=== PATIENT | female | born 1975 | race Caucasian/White ===

== ENCOUNTER 2019-11-16 14:56 | Emergency (ER) | payer OTHER, MEDICAID, SELFPAY ==
[~2019-11-16] VITALS: Ht 157.5 cm; Wt 129.3 kg
[2019-11-16 14:58] VITALS: BP_SYST 156
[2019-11-16] MEDS ORDERED: NACL 0.9% 2,000 ML IV ONE (15:15)
[2019-11-16] MEDS: ONDANSETRON HCL 4 MG/2 ML VIAL IVP ONE (15:26)
[2019-11-16] MEDS: MORPHINE 4 MG/ML INJ. SYRINGE IVP ONE (15:30)
[2019-11-16] MEDS: INSULIN REGULAR, HUMAN 10 UNITS/0.1 ML INJ IVP ONE (15:31)
[2019-11-16] MEDS: NACL 0.9% 1,000 ML IV ONE (15:34)
[2019-11-16 16:33] LABS: ANION GAP 13 (5-15); CALCIUM 8.1 mg/dL (8.4-11.0); CHLORIDE 95 mmol/L (98-107); GLUCOSE 352 mg/dL (70-99); POTASSIUM 3.6 mmol/L (3.5-5.1); SODIUM SERUM 127 mmol/L (136-145); UREA NITROGEN, BLOOD 13 mg/dL (8-21)
[2019-11-16 16:34] LABS: GFR AFRICAN AMERICAN 101 mL/min (>90); INR 1.3 (0.8-1.2); PROTHROMBIN TIME 12.5 SECS (9.5-12.5)
[2019-11-16 16:39] LABS: BILIRUBIN,URINE 2+ (NEGATIVE); BLOOD, URINE 1+ (NEGATIVE); COLOR,URINE YELLOW (YELLOW); GLUCOSE,URINE 3+ (NEGATIVE); KETONES,URINE 3+ (NEGATIVE); LEUKOCYTE ESTERASE ,URINE NEGATIVE (NEGATIVE); NITRITE, URINE NEGATIVE (NEGATIVE); PROTEIN URINE 2+ (NEGATIVE)
[2019-11-16 16:42] LABS: ALANINE AMINOTRANSFERASE 70 U/L (12-78); ASPARTATE AMINOTRANSFERASE 34 U/L (10-37); TOTAL BILIRUBIN 2.4 mg/dL (0.0-1.0)
[2019-11-16 16:43] LABS: ALBUMIN 2.6 g/dL (3.4-4.8); ALCOHOL, BLOOD < 3 mg/dL (<10); AMYLASE 34 U/L (0-100); LIPASE 130 U/L (73-393)
[2019-11-16 16:45] LABS: CLARITY/URINE HAZY (CLEAR)
[2019-11-16 16:49] LABS: WHITE BLOOD COUNT (AUTO) 16.6 K/uL (4.8-10.8)
[2019-11-16 16:50] LABS: HEMATOCRIT 41.3 % (36-48); HEMOGLOBIN 13.6 g/dL (12.0-16.0); MEAN CORPUSCULAR HEMOGLOBIN 30 pg (27-31); MEAN CORPUSCULAR HGB CONC 33 % (32-36); MEAN CORPUSCULAR VOLUME 93 fL (79.0-98.0); PLATELET COUNT (AUTO) 71 K/uL (130-430); RED BLOOD CELL COUNT(AUTO) 4.46 MIL/uL (4.2-6.2); RED CELL DISTRIBUTION WIDTH 14.9 % (9.0-15.0)
[2019-11-16 16:57] LABS: BARBITURATE, URINE NEGATIVE (NEG <=200); BENZODIAZEPINE, URINE NEGATIVE (NEG <=150); CANNABINOID, URINE NEGATIVE (NEG <=50); COCAINE, URINE NEGATIVE (NEG <=150); METHAMPHETAMINES SCREEN,URINE POSITIVE (NEG <=500); OPIATE, URINE POSITIVE (NEG <=100); PHENCYCLIDINE SCREEN,URINE NEGATIVE (NEG <=25); URINE AMPHETAMINE POSITIVE (NEG <=500); URINE METHADONE NEGATIVE (NEG <=200); URINE OXYCODONE SCREEN NEGATIVE (NEG <=100)
[2019-11-16 16:58] LABS: UR TRICYCLIC ANTIDEPRESSANTS NEGATIVE (NEG <=300); URINE PROPOXYPHENE SCREEN NEGATIVE (NEG <=300)
[2019-11-16] MEDS ORDERED: PIPERACILLIN/TAZO 4.5 GM in NS 100 ML IV ONE (17:15)
[2019-11-16 17:18] LABS: BACTERIA,URINE FEW /HPF (None Seen); MUCUS,URINE None Seen /LPF (None Seen); RBC,URINE 0-3 /HPF (0-3); WBC,URINE 0-3 /HPF (0-3); YEAST,URINE Moderate /HPF (None Seen)
[2019-11-16] MEDS ORDERED: NACL 0.9% 1,000 ML IV SCH (17:26)
[2019-11-16] MEDS ORDERED: ZOLPIDEM TARTRATE 5 MG TABLET PO PRN (17:30)
[2019-11-16] MEDS ORDERED: MORPHINE 2 MG/ML INJ. SYRINGE IVP PRN (17:30)
[2019-11-16] MEDS ORDERED: HYDROcodone/ACETAMIN 7.5-325 MG TAB PO PRN (17:30)
[2019-11-16] MEDS ORDERED: ACETAMINOPHEN 500 MG TABLET PO PRN (17:30)
[2019-11-16] MEDS ORDERED: DOCUSATE SODIUM 100 MG/10 ML UDC PO PRN (17:30)
[2019-11-16] MEDS ORDERED: ONDANSETRON HCL 4 MG/2 ML VIAL IVP PRN (17:30)
[2019-11-16 17:32] LABS: BAND % (MANUAL) 14 % (0-6); LYMPHOCYTES % (MANUAL) 3 % (20-46)
[2019-11-16 17:33] LABS: BASOPHILS % (MANUAL) 0 % (0-2); EOSINOPHILS % (MANUAL) 1 % (0-7); MONOCYTES % (MANUAL) 1 % (0-11)
[2019-11-16] MEDS ORDERED: MORPHINE 4 MG/ML INJ. SYRINGE IVP ONE (17:45)
[2019-11-16] MEDS ORDERED: NACL 0.9% 1,000 ML IV ONE (17:45)
[2019-11-16 18:13] LABS: FREE T4 (FREE THYROXINE) 0.7 ng/dL (0.6-1.6); THYROID STIMULATING HORMONE 0.47 uIu/mL (0.34-4.82)
[2019-11-16] MEDS ORDERED: PIPERACILLIN/TAZOBACTAM 4.5 GM/VIAL (ZOSYN) IV ONE (18:39)
[2019-11-17] MEDS ORDERED: PANTOPRAZOLE SODIUM 40 MG TAB PO SCH (09:00)
== END 2019-11-16 19:06 | disposition left against medical advice (07) ==
LOC: SED 14:56 → STU 17:26 → UNDOADMIN 17:26 → UNDODISIN 18:40 → STU 19:06
DX: K80.50 Calculus of bile duct without cholangitis or cholecystitis without obstruction (principal); E87.1 Hypo-osmolality and hyponatremia; N20.0 Calculus of kidney; E11.65 Type 2 diabetes mellitus with hyperglycemia; D69.6 Thrombocytopenia, unspecified; Z53.29 Procedure and treatment not carried out because of patient's decision for other reasons; Z76.5 Malingerer [conscious simulation]
CPT/HCPCS: 36415; 71045; 74176; 80053; 80061; 80307; 81000; 82150; 82550; 82962; 83036; 83605; 83690; 83735; 83880; 84100; 84439; 84443; 84484; 85007; 85027; 85610; 85730; 86710; 87040; 87086; 87186; 93005; 96374; 96375; 99285; G0482; J2270; J2405; J7030; 96361; G0378; J1815; J2543; J7040